=== PATIENT | male | born 1960 | race Caucasian/White ===

== ENCOUNTER 2017-03-03 10:42 | Emergency (ER) | payer OTHER ==
[~2017-03-03] VITALS: Ht 182.9 cm; Wt 87.5 kg
[2017-03-03 14:41] VITALS: BP 114/71
== END 2017-03-03 14:41 | disposition home or self-care (01) ==
LOC: ED 10:42
DX: S63.615A Unspecified sprain of left ring finger, initial encounter (principal); S70.02XA Contusion of left hip, initial encounter; J45.909 Unspecified asthma, uncomplicated; F15.20 Other stimulant dependence, uncomplicated; G89.29 Other chronic pain; M54.9 Dorsalgia, unspecified; B19.20 Unspecified viral hepatitis C without hepatic coma; V09.9XXA Pedestrian injured in unspecified transport accident, initial encounter; Y93.I9 Activity, other involving external motion; Y99.8 Other external cause status; Y92.89 Other specified places as the place of occurrence of the external cause
CPT/HCPCS: A4570

== ENCOUNTER 2019-05-13 21:45 | Emergency (ER) | payer OTHER ==
[~2019-05-13] VITALS: Ht 185.4 cm; Wt 94.3 kg
[2019-05-13 22:00] VITALS: Ht 185.4 cm; Wt 94.3 kg
[2019-05-13 23:19] VITALS: BP 116/65
== END 2019-05-13 23:06 | disposition home or self-care (01) ==
LOC: ED 21:45
DX: M79.2 Neuralgia and neuritis, unspecified (principal); F17.210 Nicotine dependence, cigarettes, uncomplicated; Z98.890 Other specified postprocedural states
CPT/HCPCS: 82962; 99406; J1100; J1885

== ENCOUNTER 2019-08-31 10:12 | Emergency (ER) | payer OTHER ==
[~2019-08-31] VITALS: Ht 182.9 cm; Wt 83.1 kg
[2019-08-31 10:14] VITALS: Ht 182.9 cm; Wt 83.1 kg
[2019-08-31 12:13] LABS: microscopic required? NO
[2019-08-31 12:25] LABS: urine erythrocyte NEGATIVE (NEGATIVE)
[2019-08-31 12:28] VITALS: BP 129/83
== END 2019-08-31 12:29 | disposition home or self-care (01) ==
LOC: ED 10:12
PROVIDERS: Specialist
DX: R33.9 Retention of urine, unspecified (principal); R39.198 Other difficulties with micturition; R10.30 Lower abdominal pain, unspecified; R42 Dizziness and giddiness; F17.210 Nicotine dependence, cigarettes, uncomplicated
CPT/HCPCS: 87491; 87591; 99406